=== PATIENT | male | born 1960 | race Caucasian/White ===

== ENCOUNTER 2019-06-06 14:17 | Emergency (ER) | payer BC ==
[~2019-06-06] VITALS: Ht 175.3 cm; Wt 79.4 kg
[~2019-06-06 14:17] MED LIST: Aspirin EC81 MG PO; Pepcid40 MG PO; Prinivil10 MG PO
[2019-06-06 15:16] LABS: BASOPHILS ABSOLUTE AUTO 0.06 K/mm3 (0.00-0.23); BASOPHILS PERCENT AUTO 1 % (0-2); EOSINOPHILS ABSOLUTE AUTO 0.04 K/mm3 (0.00-0.68); EOSINOPHILS PERCENT AUTO 0 % (0-6); Hematocrit 43.9 % (37.0-53.0); Hemoglobin 15.2 g/dL (13.5-17.5); IMMATURE GRAN ABSOLUTE AUTO 0.06 K/mm3 (0.00-0.10); IMMATURE GRAN PERCENT AUTO 1 % (0-1); LYMPHOCYTES ABSOLUTE AUTO 1.19 K/mm3 (0.84-5.20); LYMPHOCYTES PERCENT AUTO 13 % (21-46); MONOCYTES PERCENT AUTO 6 % (4-13); Mean Corpuscular HGB 29.5 pg (26.0-34.0); Mean Corpuscular HGB Conc 34.6 g/dL (31.5-36.5); Mean Corpuscular Volume 85 fL (80-100); Mean Platelet Volume 9.4 fL (9.1-12.4); NEUTROPHILS ABSOLUTE AUTO 7.09 K/mm3 (1.96-9.15); NEUTROPHILS PERCENT AUTO 79 % (41-73); Platelet Count 249 K/mm3 (150-400); RDW Coefficient Variation 11.9 % (11.7-14.2); RDW Standard Deviation 37.3 fL (35.1-46.3); Red Blood Cell Count 5.15 M/mm3 (4.30-5.90); White Blood Cell Count 8.94 K/mm3 (4.00-11.30)
[2019-06-06] MEDS ORDERED: Toprol Xl25 MG PO (16:13)
[2019-06-06] MEDS ORDERED: AZIT500 PO (16:13)
== END 2019-06-06 16:30 | disposition home or self-care (01) ==
LOC: ER 14:17
PROVIDERS: Emergency Medicine
DX: I10 Essential (primary) hypertension (principal); J20.9 Acute bronchitis, unspecified; J42 Unspecified chronic bronchitis; R04.2 Hemoptysis; F17.200 Nicotine dependence, unspecified, uncomplicated; Z79.899 Other long term (current) drug therapy; Z79.82 Long term (current) use of aspirin
CPT/HCPCS: 36415; 71046; 85025; 93005; 93010; 96374; 96376; 99284-25; J0360

== ENCOUNTER 2020-01-06 12:34 | Emergency (ER) | payer BC ==
[~2020-01-06] VITALS: Ht 175.3 cm; Wt 72.6 kg
[~2020-01-06 12:34] MED LIST changes: +AZIT500 PO; +Toprol Xl25 MG PO
[2020-01-06 13:31] LABS: BASOPHILS ABSOLUTE AUTO 0.06 K/mm3 (0.00-0.23); BASOPHILS PERCENT AUTO 1 % (0-2); EOSINOPHILS ABSOLUTE AUTO 0.05 K/mm3 (0.00-0.68); EOSINOPHILS PERCENT AUTO 0 % (0-6); Hematocrit 47.6 % (37.0-53.0); Hemoglobin 16.2 g/dL (13.5-17.5); IMMATURE GRAN ABSOLUTE AUTO 0.05 K/mm3 (0.00-0.10); IMMATURE GRAN PERCENT AUTO 0 % (0-1); LYMPHOCYTES ABSOLUTE AUTO 1.71 K/mm3 (0.84-5.20); LYMPHOCYTES PERCENT AUTO 15 % (21-46); MONOCYTES ABSOLUTE AUTO 0.74 K/mm3 (0.16-1.47); MONOCYTES PERCENT AUTO 7 % (4-13); Mean Corpuscular HGB 29.1 pg (26.0-34.0); Mean Corpuscular Volume 86 fL (80-100); Mean Platelet Volume 9.8 fL (9.1-12.4); NEUTROPHILS ABSOLUTE AUTO 8.78 K/mm3 (1.96-9.15); NEUTROPHILS PERCENT AUTO 77 % (41-73); Platelet Count 238 K/mm3 (150-400); RDW Standard Deviation 37.6 fL (35.1-46.3); Red Blood Cell Count 5.56 M/mm3 (4.30-5.90); White Blood Cell Count 11.39 K/mm3 (4.00-11.30)
[2020-01-06 13:50] LABS: Alanine Aminotransfer (ALT/SGP 49 U/L (12-78); Albumin, Blood 4.1 g/dL (3.4-5.0); Albumin/Globulin Ratio 1.1 (0.8-1.8); Alk Phos 129 U/L (50-136); Anion Gap 5 mmol/L (6-16); Aspartate Aminotrans (AST/SGOT 26 U/L (12-37); Bilirubin, Total 0.4 mg/dL (0.1-1.0); Blood Urea Nitrogen 17 mg/dL (8-24); Bun/Creatinine Ratio 16.2 (12.0-20.0); CO2, Blood 28 mmol/L (21-32); Calcium, Blood 9.5 mg/dL (8.5-10.1); Chloride, Blood 105 mmol/L (98-108); Creatinine, Blood 1.05 mg/dL (0.60-1.20); Globulin, Blood 3.7 g/dL (2.2-4.0); Glomerular Filtration Rate >60 (60-); Glucose, Blood 94 mg/dL (70-99); Potassium, Blood 4.2 mmol/L (3.5-5.5); Sodium, Blood 138 mmol/L (136-145); Total Protein, Blood 7.8 g/dL (6.4-8.2); Troponin I <0.015 ng/mL (0.000-0.040)
[2020-01-06] MEDS ORDERED: LISI10 PO (14:17)
== END 2020-01-06 14:29 | disposition home or self-care (01) ==
LOC: ER 12:34
PROVIDERS: Emergency Medicine
DX: I10 Essential (primary) hypertension (principal); F17.210 Nicotine dependence, cigarettes, uncomplicated; Z79.82 Long term (current) use of aspirin
CPT/HCPCS: 36415; 71045; 80053; 84484; 85025; 93005; 93010; 96374; 99285-25

== ENCOUNTER 2020-01-13 10:06 | Emergency (ER) | payer BC ==
[~2020-01-13] VITALS: Ht 175.3 cm; Wt 72.6 kg
[~2020-01-13 10:06] MED LIST changes: +LISI10 PO
[2020-01-13 11:16] LABS: BASOPHILS ABSOLUTE AUTO 0.06 K/mm3 (0.00-0.23); BASOPHILS PERCENT AUTO 1 % (0-2); EOSINOPHILS ABSOLUTE AUTO 0.04 K/mm3 (0.00-0.68); EOSINOPHILS PERCENT AUTO 0 % (0-6); Hematocrit 45.6 % (37.0-53.0); Hemoglobin 15.3 g/dL (13.5-17.5); IMMATURE GRAN ABSOLUTE AUTO 0.06 K/mm3 (0.00-0.10); IMMATURE GRAN PERCENT AUTO 1 % (0-1); LYMPHOCYTES ABSOLUTE AUTO 1.32 K/mm3 (0.84-5.20); LYMPHOCYTES PERCENT AUTO 11 % (21-46); MONOCYTES ABSOLUTE AUTO 0.72 K/mm3 (0.16-1.47); MONOCYTES PERCENT AUTO 6 % (4-13); Mean Corpuscular HGB 28.6 pg (26.0-34.0); Mean Corpuscular HGB Conc 33.6 g/dL (31.5-36.5); Mean Corpuscular Volume 85 fL (80-100); Mean Platelet Volume 9.6 fL (9.1-12.4); NEUTROPHILS ABSOLUTE AUTO 9.37 K/mm3 (1.96-9.15); NEUTROPHILS PERCENT AUTO 81 % (41-73); Platelet Count 263 K/mm3 (150-400); RDW Coefficient Variation 11.9 % (11.7-14.2); RDW Standard Deviation 37.4 fL (35.1-46.3); Red Blood Cell Count 5.35 M/mm3 (4.30-5.90); White Blood Cell Count 11.57 K/mm3 (4.00-11.30)
[2020-01-13 11:32] LABS: Alanine Aminotransfer (ALT/SGP 35 U/L (12-78); Albumin, Blood 4.2 g/dL (3.4-5.0); Albumin/Globulin Ratio 1.1 (0.8-1.8); Alk Phos 130 U/L (50-136); Anion Gap 5 mmol/L (6-16); Aspartate Aminotrans (AST/SGOT 19 U/L (12-37); Bilirubin, Total 0.3 mg/dL (0.1-1.0); Blood Urea Nitrogen 20 mg/dL (8-24); Bun/Creatinine Ratio 18.9 (12.0-20.0); CO2, Blood 26 mmol/L (21-32); Calcium, Blood 9.6 mg/dL (8.5-10.1); Chloride, Blood 103 mmol/L (98-108); Creatinine, Blood 1.06 mg/dL (0.60-1.20); Globulin, Blood 3.7 g/dL (2.2-4.0); Glomerular Filtration Rate >60 (60-); Glucose, Blood 90 mg/dL (70-99); Potassium, Blood 4.6 mmol/L (3.5-5.5); Sodium, Blood 134 mmol/L (136-145); Total Protein, Blood 7.9 g/dL (6.4-8.2)
== END 2020-01-13 17:29 | disposition home or self-care (01) ==
LOC: ER 10:06
PROVIDERS: Physician Assistant
DX: I10 Essential (primary) hypertension (principal); R07.89 Other chest pain; F17.210 Nicotine dependence, cigarettes, uncomplicated; Z79.899 Other long term (current) drug therapy; Z79.82 Long term (current) use of aspirin
CPT/HCPCS: 36415; 71046; 80053; 85025; 93005; 93010; 99284-25; J1815

== ENCOUNTER 2022-09-13 10:23 | Inpatient (IN) | payer OTHER ==
[~2022-09-13] VITALS: Ht 172.7 cm; Wt 62.3 kg
[~2022-09-13 10:23] MED LIST changes: +ROSU5; +SPIRIVA RESPIMAT4 G2; +TELM40
[2022-09-13 11:14] LABS: Hematocrit 36.7 % (37.0-53.0); Hemoglobin 12.5 g/dL (13.5-17.5); Mean Corpuscular HGB 26.7 pg (26.0-34.0); Mean Corpuscular HGB Conc 34.1 g/dL (31.5-36.5); Mean Corpuscular Volume 78 fL (80-100); Mean Platelet Volume 7.9 fL (9.1-12.4); Platelet Count 525 K/mm3 (150-400); RDW Coefficient Variation 13.5 % (11.7-14.2); RDW Standard Deviation 38.5 fL (35.1-46.3); Red Blood Cell Count 4.68 M/mm3 (4.30-5.90); White Blood Cell Count 26.33 K/mm3 (4.00-11.30)
[2022-09-13 11:33] LABS: Albumin/Globulin Ratio 0.4 (0.8-1.8); Bilirubin, Total 0.3 mg/dL (0.1-1.0); Bun/Creatinine Ratio 13.6 (12.0-20.0); Creatinine, Blood 0.66 mg/dL (0.60-1.20); Globulin, Blood 5.1 g/dL (2.2-4.0); Total Protein, Blood 7.2 g/dL (6.4-8.2)
[2022-09-13 11:43] LABS: Albumin, Blood 2.1 g/dL (3.4-5.0)
[2022-09-13 12:33] LABS: BASOPHILS PERCENT MAN 0 % (0-2); EOSINOPHILS PERCENT MAN 0 % (0-6); LYMPHOCYTES ABSOLUTE MAN 0.78 K/mm3 (0.84-5.20); LYMPHOCYTES PERCENT MAN 3 % (21-46); MONOCYTES ABSOLUTE MAN 1.05 K/mm3 (0.16-1.47); MONOCYTES PERCENT MAN 4 % (4-13); NEUTROPHILS ABSOLUTE MAN 24.48 K/mm3 (1.96-9.15); SEG NEUTROPHILS PERCENT MAN 93 % (41-73); TOTAL CELLS COUNTED 100
[2022-09-13 15:53] LABS: Percent Saturation 10.8 % (20.0-50.0)
[2022-09-13 17:10] VITALS: BP 151/95
--- NOTE | 2022-09-13 17:59 | NUR ---
SHIFT SUMMARY 1702 RECEIVED PT TO RM 342 VIA W/C FROM ER. PT IS A&O, INDEPENDENT AND ABLE TO TX SELF TO BED. PT UP TO BTHRM UPON ADMISSION; URINE OBTAINED AND SENT PER ORDERS. PT BACK TO BED INDEPENDENTLY. ADMISSION COMPLETE. NO C/O. DIET ORDERED; PT REPORTED THAT HE FEELS LIKE HE MIGHT ACTUALLY EAT SOMETHING. PT REPORTING RECENT 50LB WT LOSS. FRIENDS IN TO VISIT BRINGING PERSONAL ITEMS. DENIED FURTHER NEEDS. CALL LT IN REACH.
[2022-09-13 20:21] VITALS: BP 144/73
--- NOTE | 2022-09-14 04:50 | NUR ---
SHIFT SUMMARY NO ACUTE CHANGES NOTED DURING SHIFT. PT ALERT AND ORIENTED, CALLS APPROPRIATELY. PT REMAINS ON RA, INDEPENDENT IN ROOM. NO C/O PAIN NOTED. NS INFUSION COMPLETED. WILL CONTINUE TO MONITOR. CALL LIGHT WITHIN REACH.
[2022-09-14 04:59] VITALS: BP 146/90
[2022-09-14 05:57] LABS: BASOPHILS ABSOLUTE AUTO 0.04 K/mm3 (0.00-0.23); BASOPHILS PERCENT AUTO 0 % (0-2); EOSINOPHILS ABSOLUTE AUTO 0.01 K/mm3 (0.00-0.68); EOSINOPHILS PERCENT AUTO 0 % (0-6); Hematocrit 29.5 % (37.0-53.0); Hemoglobin 9.9 g/dL (13.5-17.5); IMMATURE GRAN ABSOLUTE AUTO 0.28 K/mm3 (0.00-0.10); IMMATURE GRAN PERCENT AUTO 2 % (0-1); LYMPHOCYTES ABSOLUTE AUTO 0.57 K/mm3 (0.84-5.20); LYMPHOCYTES PERCENT AUTO 3 % (21-46); MONOCYTES ABSOLUTE AUTO 0.65 K/mm3 (0.16-1.47); MONOCYTES PERCENT AUTO 3 % (4-13); Mean Corpuscular HGB 26.2 pg (26.0-34.0); Mean Corpuscular HGB Conc 33.6 g/dL (31.5-36.5); Mean Corpuscular Volume 78 fL (80-100); Mean Platelet Volume 8.3 fL (9.1-12.4); NEUTROPHILS ABSOLUTE AUTO 17.69 K/mm3 (1.96-9.15); NEUTROPHILS PERCENT AUTO 92 % (41-73); Platelet Count 413 K/mm3 (150-400); RDW Coefficient Variation 13.4 % (11.7-14.2); RDW Standard Deviation 38.5 fL (35.1-46.3); Red Blood Cell Count 3.78 M/mm3 (4.30-5.90); White Blood Cell Count 19.24 K/mm3 (4.00-11.30)
[2022-09-14 06:49] LABS: Albumin, Blood 1.7 g/dL (3.4-5.0); Albumin/Globulin Ratio 0.4 (0.8-1.8); Bilirubin, Total 0.3 mg/dL (0.1-1.0); Bun/Creatinine Ratio 20.6 (12.0-20.0); Calcium, Blood 8.3 mg/dL (8.5-10.1); Creatinine, Blood 0.53 mg/dL (0.60-1.20); Globulin, Blood 4.1 g/dL (2.2-4.0); Magnesium, Blood 1.8 mg/dL (1.6-2.4); Potassium, Blood 4.4 mmol/L (3.5-5.5); Thyroid Stimulating Hormone 1.18 uIU/mL (0.360-4.800); Total Protein, Blood 5.8 g/dL (6.4-8.2)
[2022-09-14 07:17] VITALS: BP 164/80
[2022-09-14 15:04] VITALS: BP 174/81
--- NOTE | 2022-09-14 15:57 | NUR ---
SHIFT SUMMARY PT AWAKE DURING SHIFT REPORT, THIS AM. NO C/O. PLEASANT AND CO-OP. UP INDEPENDENTLY IN RM AND WALKING HALLS. VISITORS IN TO SEE PT EARLY. DR TORRES LATER IN TO SEE PT AND DISCUSS PLAN OF CARE. PULMONOLOGY TO CONTACTED FOR THROACENTISIS OR BRONCHOSCOPY. DR WERNER LATER IN TO SEE PT AND DISCUSS PLAN OF CARE. PT TO HAVE BRONCHOSCOPY TOMORROW, POSSIBLY IN AFTERNOON; DR WERNER TO MAKE ARRANGEMENTS AND PLACE ORDERS NEEDED. PLAN IS FOR PT TO EAT BREAKFAST IN AM AND THEN BE NPO. IV ABX ORDERED AND GIVEN PER EMAR. PT THEN UP INDEPENDENTLY GOING OUT FOR WALK IN HALLS. NO C/O PAIN. PT HAS BEEN TOLERATING MEALS WELL SINCE BEING ABLE TO EAT. DENIED FURTHER NEEDS AT THIS TIME. CALL LT IN REACH.
[2022-09-14 20:10] VITALS: BP 145/81
[2022-09-15 04:43] VITALS: BP 174/90
[2022-09-15 05:10] LABS: Hematocrit 30.6 % (37.0-53.0); Hemoglobin 10.2 g/dL (13.5-17.5); Mean Corpuscular HGB Conc 33.3 g/dL (31.5-36.5); Mean Corpuscular Volume 78 fL (80-100); Platelet Count 460 K/mm3 (150-400); RDW Coefficient Variation 13.4 % (11.7-14.2); RDW Standard Deviation 38.5 fL (35.1-46.3); Red Blood Cell Count 3.93 M/mm3 (4.30-5.90)
[2022-09-15 05:24] LABS: International Normalized Ratio 1.16; Prothrombin Time Results 12.1 Sec (9.7-11.5)
--- NOTE | 2022-09-15 05:27 | NUR ---
SHIFT SUMMARY NO ACUTE CHANGES NOTED DURING SHIFT. PT ALERT AND ORIENTED, CALLS APPRORPIATELY. PLANS FOR BRONCOSCOPY TODAY, NPO AFTER BREAKFAST. PT REMAINS ON RA, INDEPENDENT IN ROOM. CONTINUE IV ABX. NO C/O PAIN NOTED. WILL CONTINUE TO MONITOR. CALL LIGHT WITHIN REACH.
[2022-09-15 05:30] LABS: Albumin, Blood 1.7 g/dL (3.4-5.0); Albumin/Globulin Ratio 0.5 (0.8-1.8); Bilirubin, Total 0.2 mg/dL (0.1-1.0); Bun/Creatinine Ratio 13.2 (12.0-20.0); Calcium, Blood 8.2 mg/dL (8.5-10.1); Creatinine, Blood 0.91 mg/dL (0.60-1.20); Globulin, Blood 3.7 g/dL (2.2-4.0); Magnesium, Blood 1.6 mg/dL (1.6-2.4); Potassium, Blood 3.9 mmol/L (3.5-5.5); Total Protein, Blood 5.4 g/dL (6.4-8.2)
[2022-09-15 07:58] VITALS: BP 146/84
[2022-09-15 15:56] VITALS: BP 169/94
--- NOTE | 2022-09-15 17:47 | NUR ---
NO ACUTE CHANGES. PT AOX4 AND COOPERATIVE OF CARE. PT DOES CONTINUE TO HAVE SOME COUGHING FITS THAT RESOLVE. INDEPENDENT IN ROOM. PT INSTRUCTED ON IGNITION HAZARDS WHEN O2 IS IN THE ROOM AND VERBALIZED UNDERSTANDING. CALL LIGHT WITHIN REACH ABLE TO MAKE NEEDS KNOWN.
[2022-09-15 20:02] VITALS: BP 150/82
[2022-09-16] VITALS (55 sets, daily range): BP systolic 121–180; BP diastolic 68–146
--- NOTE | 2022-09-16 03:13 | NUR ---
FIRE SAFETY PATIENT EDUCATED ON HOURLY ROUNDING FOR FIRE SAFETY AND RISK OF INJURY WHILE OXYGEN IN USE. PATIENT VERBALIZED UNDERSTANDING, DENIES HAVING ANY IGNITION SOURCES, DENIES SMOKING.
--- NOTE | 2022-09-16 05:49 | NUR ---
SHIFT SUMMARY PATIENT A/0X4, NO C/O PAIN NOR DISCOMFORT STATED THIS SHIFT. INTERMITTANT DRY COUGH, WHEEZING AT TIMES, DENIES SOB, NOR DIFFICULTY BREATHING. COMPLIANT WITH NPO STATUS SINCE MIDNIGHT. INDEPENDANT IN ROOM. NO ACUTE CHANGES OVERNIGHT. BED IN LOW POSITION, CALL LIGHT WITHIN REACH.
--- NOTE | 2022-09-16 12:56 | NUR ---
PT OUT OF ROOM FOR PROCEDURE AT THIS TIME.
--- NOTE | 2022-09-16 13:07 | NUR ---
Patient confirms NPO status and agrees with scheduled surgery. History, Chart, Medications and Allergies reviewed before start of procedure.Pre-Op teaching done. Pt verbalizes understanding. PT HERE FROM MED FLOOR FOR BRONCH LUNGS COARSE W/EXPIRATORY WHEEZE ON RIGHT SIDE, LEFT UPPER LOBE COARSE, LEFT LOWER LOBE VERY DIM
--- NOTE | 2022-09-16 13:37 | NUR ---
09/16/22 1336 Joao [place] HISTORY,CHART, MEDICATIONS AND ALLERGIES REVIEWED BEFORE START OF PROCEDURE. PATIENT CONFIRMS NPO STATUS AND AGREES WITH SCHEDULED PROCEDURE. 3-LEAD EKG REVIEWED WITH PHYSICIAN PRIOR TO START OF PROCEDURE. MONITOR INTACT WITH CONTINUOUS PULSE OXIMETRY, 3-LEAD EKG, CAPNOGRAPHY AND INTERMITTENT BP. SUPPLEMENTAL O2 TO BE TITRATED THROUGHOUT PROCEDURE TO MAINTAIN O2 SATURATION ABOVE 90%. PATIENT DETERMINED TO BE ASA APPROPRIATE FOR MODERATE SEDATION PRIOR TO START OF PROCEDURE BY
--- NOTE | 2022-09-16 15:41 | NUR ---
SHIFT SUMMARY PRIOR TO LEAVING FOR PROCEDURE PT WAS AA0X4, IND IN ROOM. NO PAIN AND HE DENIES SOB. CURRENTLY AWAITING PT TO COME BACK FROM PROCEDURE.
--- NOTE | 2022-09-16 16:40 | NUR ---
ARRIVAL PT ARRIVED TO UNIT FROM PACU AT 1630. PT ABLE TO STAND UP, AWAKE AND ORIENTED. MAKING NEEDS MET. PT STATES HE CAN WALK ON HIS OWN, BUT GAIT DOES NOT MATCH. BED ALARM IS ON, EDUCATED PT ON NEED TO CALL WITH ALL AMBULATION. PLACED ON 2L NASAL CANULA, SATS 88-89% ON ROOM AIR. 95% OR HIGHER ON 2L.
--- NOTE | 2022-09-16 16:42 | NUR ---
PATIENT REPOSITIONED, NEURO CHECKS DONE, PATIENT ABLE TO FOLLOW COMMANDS AFTER REPOITIOING. AWAKE FOR A FEW MINUTES BEFORE ABLE TO RESPOND VERBALLY. CALLED MEDICAL FLOOR RN TO DISCUSS. PATIENT TRANSFERED BACK TO MEDICAL
--- NOTE | 2022-09-17 03:21 | NUR ---
SHIFT SUMMARY NOC PT A/O X 4. PLEASANT AND COOPERATIVE WITH CARE. POST OP FOR BIOPSY FROM LEFT LUNG TO R/O CANCER. PT HAS COUGHED UP BLOOD A FEW TIMES DURING SHIFT, BUT IT IS EXPECTED. POST OP VS REMAIN STABLE. PT HAS SLEPT MAJORITY OF SHIFT, PT REPORTS FEELING STRESSED FROM PROCEDURE YESTERDAY AND LOOKING FORWARD TO GETTING SOME REST. BEDTIME RX GIVEN. PT IS CURRENTLY RESTING WITH BED IN LOWEST POSITION, AND CALL LIGHT WITHIN REACH.
[2022-09-17 05:34] VITALS: BP 142/95
--- NOTE | 2022-09-17 05:56 | NUR ---
PT EDUCATED ON [facility] IGNITION/EXPLOSIVES NON SMOKING SAFETY POLICY.
[2022-09-17 07:32] VITALS: BP 137/79
[2022-09-17 08:12] LABS: BASOPHILS ABSOLUTE AUTO 0.05 K/mm3 (0.00-0.23); BASOPHILS PERCENT AUTO 0 % (0-2); EOSINOPHILS PERCENT AUTO 0 % (0-6); Hemoglobin 10.3 g/dL (13.5-17.5); IMMATURE GRAN ABSOLUTE AUTO 0.32 K/mm3 (0.00-0.10); IMMATURE GRAN PERCENT AUTO 2 % (0-1); LYMPHOCYTES PERCENT AUTO 4 % (21-46); MONOCYTES PERCENT AUTO 6 % (4-13); Mean Corpuscular HGB 26.2 pg (26.0-34.0); Mean Corpuscular HGB Conc 33.2 g/dL (31.5-36.5); Mean Corpuscular Volume 79 fL (80-100); Mean Platelet Volume 8.1 fL (9.1-12.4); NEUTROPHILS ABSOLUTE AUTO 11.77 K/mm3 (1.96-9.15); NEUTROPHILS PERCENT AUTO 87 % (41-73); Platelet Count 442 K/mm3 (150-400); RDW Coefficient Variation 13.5 % (11.7-14.2); Red Blood Cell Count 3.93 M/mm3 (4.30-5.90); White Blood Cell Count 13.54 K/mm3 (4.00-11.30)
[2022-09-17 08:26] LABS: Bun/Creatinine Ratio 16.9 (12.0-20.0); Calcium, Blood 8.2 mg/dL (8.5-10.1); Creatinine, Blood 0.65 mg/dL (0.60-1.20); Potassium, Blood 3.8 mmol/L (3.5-5.5)
--- NOTE | 2022-09-17 14:50 | NUR ---
Pt. is awake and welcomes my visit. Pt. is pleasant, but a little unsettled waiting for the results of his biopsy. Pt. verbalized that he was dissapointed that Dr. Leonard was no longer on his case, because Pt. appreciated his care and approach. Facilitated a life review and established rapport. Pt. verbalized things that meant the most to him during this medical ordeal, and clarified that it was the friends who are reaching out to care for him. Prayed with Pt. and normalized the Pt. expereince. Pt. verbalized gratitude for the spiritual care visit.
[2022-09-17 16:07] VITALS: BP 144/79
--- NOTE | 2022-09-17 17:28 | NUR ---
SHIFT SUMMARY PATIENT ALERT AND INTERACTIVE. CONTINUES TO COUGH UP PINK FOAMY SPUTUM. LUNGS WHEEZY AND COARSE. PATIENT CONTINUES TO BE ON OXYGEN. WAITING FOR PATHOLOGY REPORT. PATIENT INDEPENDENT IN THE ROOM. PATIENT GIVEN FLUTTER AND IS AND STARTED ON TESALON PEARLS FOR COUGH.
[2022-09-17 19:05] VITALS: BP 177/96
[2022-09-17 20:52] VITALS: BP 174/86
--- NOTE | 2022-09-17 21:15 | NUR ---
NOTIFIED JENSEN GRIMES OF PTS B/P OF 174/ THIS EVENING DESPITE PM B/P MED ADMINISTRATION. NEW ORDER FOR 25MG OF PO HYDRALAZINE Q8HR FOR A SBP >180.
[2022-09-18 04:16] VITALS: BP 176/96
[2022-09-18 05:49] LABS: BASOPHILS ABSOLUTE AUTO 0.07 K/mm3 (0.00-0.23); BASOPHILS PERCENT AUTO 1 % (0-2); EOSINOPHILS ABSOLUTE AUTO 0.03 K/mm3 (0.00-0.68); EOSINOPHILS PERCENT AUTO 0 % (0-6); Hematocrit 29.3 % (37.0-53.0); Hemoglobin 9.9 g/dL (13.5-17.5); IMMATURE GRAN ABSOLUTE AUTO 0.38 K/mm3 (0.00-0.10); IMMATURE GRAN PERCENT AUTO 3 % (0-1); LYMPHOCYTES ABSOLUTE AUTO 0.76 K/mm3 (0.84-5.20); LYMPHOCYTES PERCENT AUTO 6 % (21-46); MONOCYTES ABSOLUTE AUTO 0.97 K/mm3 (0.16-1.47); MONOCYTES PERCENT AUTO 7 % (4-13); Mean Corpuscular HGB 26.3 pg (26.0-34.0); Mean Corpuscular HGB Conc 33.8 g/dL (31.5-36.5); Mean Corpuscular Volume 78 fL (80-100); Mean Platelet Volume 8.4 fL (9.1-12.4); NEUTROPHILS ABSOLUTE AUTO 10.88 K/mm3 (1.96-9.15); NEUTROPHILS PERCENT AUTO 83 % (41-73); Platelet Count 435 K/mm3 (150-400); RDW Coefficient Variation 13.3 % (11.7-14.2); RDW Standard Deviation 37.8 fL (35.1-46.3); Red Blood Cell Count 3.76 M/mm3 (4.30-5.90); White Blood Cell Count 13.09 K/mm3 (4.00-11.30)
--- NOTE | 2022-09-18 06:12 | NUR ---
SHIFT SUMMARY; NO ACUTE CHANGES OVERNIGHT. THE PT IS AXO X4 AND INDEPENDENT IN THE ROOM. THE PT IS ON 2L NC WITH O2 SATS >92%. THE PT HAS A SEMI-PRODUCTIVE COUGH WITH SMALL AMOUNTS OF PINK SPUTUM THAT HE IS COUGHING UP. THE PT DENIES ANY CHEST PAIN/PRESSURE, SOB, PAIN OR N/V THIS SHIFT. CURRENTLY THE PT IS SLEEPING IN BED WITH THE BED IN THE LOWEST POSITION AND THE CALL LIGHT AT BEDSIDE.
[2022-09-18 06:23] LABS: Bun/Creatinine Ratio 19.6 (12.0-20.0); Creatinine, Blood 0.66 mg/dL (0.60-1.20); Potassium, Blood 4.6 mmol/L (3.5-5.5)
--- NOTE | 2022-09-18 06:31 | NUR ---
FIRE SAFETY MAINTAINED T/O SHIFT.
[2022-09-18 07:42] VITALS: BP 153/95
--- NOTE | 2022-09-18 18:09 | NUR ---
NO ACUTE CHANGES AT THIS TIME. PT AOX4 AND COOPERATIVE OF CARE. PT INDEPENDENT IN ROOM. PT CAN MAKE NEEDS KNOWN AND NO DISTRESS NOTED AT THIS TIME. CALL LIGHT WITHIN REACH. PT CONTINUES TO GET HOURLY REMINDERS OF IGNITION RISK FACTORS AND THE HAZARDS OF USE IN ROOMS WITH 02. PT VERBALIZES UNDERSTANDING.WILL CONTINUE TO MONITOR.
[2022-09-18 20:33] VITALS: BP 153/82
[2022-09-19 01:56] VITALS: BP 141/71
[2022-09-19 06:04] LABS: Hematocrit 30.4 % (37.0-53.0); Hemoglobin 10.3 g/dL (13.5-17.5); Mean Corpuscular HGB Conc 33.9 g/dL (31.5-36.5); Mean Corpuscular Volume 77 fL (80-100); Mean Platelet Volume 7.9 fL (9.1-12.4); Platelet Count 421 K/mm3 (150-400); RDW Coefficient Variation 12.9 % (11.7-14.2); RDW Standard Deviation 36.4 fL (35.1-46.3); Red Blood Cell Count 3.96 M/mm3 (4.30-5.90); White Blood Cell Count 12.01 K/mm3 (4.00-11.30)
--- NOTE | 2022-09-19 06:17 | NUR ---
SHIFT SUMMARY NO EVENTS OVERNIGHT. Q1H FIRE SAFETY CHECKS PERFORMED, NO SOURCES OF IGNITION FOUND.
[2022-09-19 06:48] LABS: Bun/Creatinine Ratio 18.5 (12.0-20.0); Calcium, Blood 8.2 mg/dL (8.5-10.1); Creatinine, Blood 0.59 mg/dL (0.60-1.20); Potassium, Blood 4.3 mmol/L (3.5-5.5)
--- NOTE | 2022-09-19 07:00 | NUR ---
FIRE SAFETY QUESTIONS, STATES NO IGNITION SOURCES
[2022-09-19 07:22] LABS: BASOPHILS PERCENT MAN 0 % (0-2); EOSINOPHILS PERCENT MAN 0 % (0-6); LYMPHOCYTES ABSOLUTE MAN 0.96 K/mm3 (0.84-5.20); LYMPHOCYTES PERCENT MAN 8 % (21-46); METAMYELOCYTE ABSOLUTE MAN 0.24 K/mm3 (0.00-0.00); METAMYELOCYTE PERCENT MAN 2 % (0-0); MONOCYTES ABSOLUTE MAN 0.24 K/mm3 (0.16-1.47); MONOCYTES PERCENT MAN 2 % (4-13); MYELOCYTE ABSOLUTE MAN 0.36 K/mm3 (0.00-0.00); MYELOCYTE PERCENT MAN 3 % (0-0); SEG NEUTROPHILS PERCENT MAN 85 % (41-73); TOTAL CELLS COUNTED 100
[2022-09-19 07:44] VITALS: BP 149/89
--- NOTE | 2022-09-19 13:41 | NUR ---
PT PRE MEDICATED WITH 8 MG IV ZOFRAN AND 12 MG IV DECADRON. IV TO RIGHT UPPER ARM IS PATENT, GOOD BLOOD RETURN AND FLUSHES WELL
--- NOTE | 2022-09-19 14:35 | NUR ---
IV CHECKED, GOOD BLOOD RETURN AND FLUSHES EASILY, NO SWELLING OR REDNESS NOTED AT IV SITE, PT DENIES PAIN OR DISCOMFORT. VESPID VERIFIED WITH [place] AND INFUSION STARTED. PT CONTINUES TO DENY PAIN/DISCOMFORT. WILL MONITOR DURING INFUSION.
--- NOTE | 2022-09-19 15:52 | NUR ---
PT PLEASANT COOP TODAY. RECEIVING FIRST CHEMO DOSE NOW. PREMEDICATED ZOFRAN AND STEROIDS. PT DENIES PAIN TODAY. FRIENDS IN TO VISIT TODAY. DR PORTER NOTES [facility] DAYS THEN EXPECTS OUTPATIENT CARE [facility]. CALLED DR PORTER RE IV PLACEMNT NECESSARY. TO ADVIST DR FENTON. NO OTHER CONCERNS NOTED TODAY. BED IN LOW POSITION, CALLLITE IN REACH, CALLS APPROP
--- NOTE | 2022-09-19 16:00 | NUR ---
VESPID INFUSION COMPLETE. PT HAS TOLERATED WELL, NO PAIN, SWELLING OR REDNESS AT IV SITE. TUBING REMOVED AND DISPOSED OF PER PROTOCOL. SIGNAGE PLACED AT DOOR
[2022-09-19 19:26] VITALS: BP 171/92
--- NOTE | 2022-09-19 19:57 | NUR ---
DR FENTON SPOKE TO ME RE MEDIPORT PLACEMENT. CALLED DR PORTER, HE AGREES IS GOOD IDEA, DR FENTON OKAYED SURG CONSULT TO DR BOO FOR PLACEMENT, I CALLED CONSULT
--- NOTE | 2022-09-20 03:44 | NUR ---
SHIFT SUMMARY NOC PT A/O X 4. PLEASANT AND COOPERATIVE WITH CARE. PT HAD C/O OF HEART BURN AND TUMS ORDERED, OTHERWISE NO ACUTE CHANGES TO REPORT. PT HAD FIRST ROUND OF CHEMOTHERAPY FOR NEWLY DX LUNG CANCER YESTERDAY AND REPORTS NO N/V. PT HAS CONSULT CALLED IN FOR POSSIBLE MEDIPORT PLACEMENT WITH DR LABOY. PT WILL REMAIN IN HOSPTIAL FOR 3 MORE DAYS BEFORE GOING TO [facility] FOR FOLLOW UP WITH ONCOLOGIST DR PORTER. PT SODIUM 116, SO PT ON 1L FREE WATER FLUID RESTRICTION TO CORRECT IMBALANCE, AWAITING AM LABS. PT EDUCATED ON [facility] IGNITION/EXPLOSIVES NON SMOKING SAFETY POLICY. PT IS CURRENTLY RESTING WITH BED IN LOWEST POSITION, AND CALL LIGHT WITHIN REACH.
[2022-09-20 04:58] VITALS: BP 174/89
[2022-09-20 06:19] LABS: Hematocrit 33.2 % (37.0-53.0); Hemoglobin 11.8 g/dL (13.5-17.5); Mean Corpuscular HGB 26.4 pg (26.0-34.0); Mean Corpuscular HGB Conc 35.5 g/dL (31.5-36.5); Mean Corpuscular Volume 74 fL (80-100); Mean Platelet Volume 8.3 fL (9.1-12.4); Platelet Count 528 K/mm3 (150-400); RDW Standard Deviation 34.7 fL (35.1-46.3); Red Blood Cell Count 4.47 M/mm3 (4.30-5.90); White Blood Cell Count 12.63 K/mm3 (4.00-11.30)
[2022-09-20 06:53] LABS: BAND PERCENT MAN 4 % (0-8); BASOPHILS PERCENT MAN 0 % (0-2); EOSINOPHILS PERCENT MAN 0 % (0-6); LYMPHOCYTES ABSOLUTE MAN 0.37 K/mm3 (0.84-5.20); LYMPHOCYTES PERCENT MAN 3 % (21-46); METAMYELOCYTE ABSOLUTE MAN 0.25 K/mm3 (0.00-0.00); METAMYELOCYTE PERCENT MAN 2 % (0-0); MONOCYTES ABSOLUTE MAN 0.25 K/mm3 (0.16-1.47); MONOCYTES PERCENT MAN 2 % (4-13); MYELOCYTE PERCENT MAN 4 % (0-0); NEUTROPHILS ABSOLUTE MAN 11.24 K/mm3 (1.96-9.15); SEG NEUTROPHILS PERCENT MAN 85 % (41-73); TOTAL CELLS COUNTED 100
[2022-09-20 08:39] VITALS: BP 154/87
[2022-09-20 10:40] LABS: Albumin, Blood 2.2 g/dL (3.4-5.0); Albumin/Globulin Ratio 0.5 (0.8-1.8); Bilirubin, Total 0.3 mg/dL (0.1-1.0); Calcium, Blood 8.9 mg/dL (8.5-10.1); Creatinine, Blood 0.6 mg/dL (0.60-1.20); Globulin, Blood 4.2 g/dL (2.2-4.0); Potassium, Blood 4.4 mmol/L (3.5-5.5); Total Protein, Blood 6.4 g/dL (6.4-8.2)
[2022-09-20 14:11] LABS: Bun/Creatinine Ratio 22.9 (12.0-20.0); Calcium, Blood 8.6 mg/dL (8.5-10.1); Creatinine, Blood 0.7 mg/dL (0.60-1.20); Potassium, Blood 4.4 mmol/L (3.5-5.5)
--- NOTE | 2022-09-20 17:29 | NUR ---
SHIFT SUMMARY: Pt remains A&O this shift. VSS, denies pain. OOB with SBA when IV infusing. Resp even nonlabored on RA. Nausea more managed with current regime. Hiccups subsided. Powerglide placed left arm for chemo that was given today by web services architect without complication. Dr. Peguero aware and orders received for Na 111. No further needs id or verbalized at this time. Will continue to monitor this shift.
[2022-09-20 17:34] VITALS: BP 144/81
[2022-09-20 19:12] LABS: Bun/Creatinine Ratio 27.6 (12.0-20.0); Calcium, Blood 8.4 mg/dL (8.5-10.1); Creatinine, Blood 0.58 mg/dL (0.60-1.20); Potassium, Blood 4.5 mmol/L (3.5-5.5)
[2022-09-20 19:25] VITALS: BP 153/102
[2022-09-20 22:54] LABS: Bun/Creatinine Ratio 24.6 (12.0-20.0); Calcium, Blood 8.1 mg/dL (8.5-10.1); Creatinine, Blood 0.65 mg/dL (0.60-1.20); Potassium, Blood 4.3 mmol/L (3.5-5.5)
[2022-09-21 02:47] VITALS: BP 158/84
[2022-09-21 03:09] LABS: Calcium, Blood 7.9 mg/dL (8.5-10.1); Creatinine, Blood 0.61 mg/dL (0.60-1.20); Potassium, Blood 4.3 mmol/L (3.5-5.5)
--- NOTE | 2022-09-21 03:25 | NUR ---
SHIFT SUMMARY NOC PT A/O X 4. PLEASANT AND COOPERATIVE WITH CARE. PT COMPLETED SECOND ROUND OF CHEMOTHERAPY YESTERDAY FOR NEW DX OF LUNG CANCER. PT REPORTS MILD NAUSEA AND DID NOT WANT ANY RX FOR IT. PT HAS PG AROLDO PLACED YESTERDAY AFTER SURGICAL CONSULT DECIDED THAT PLACEMENT OF MEDIPORT CONTAINED TO MUCH RISK FOR PT SAFETY DUE TO POSSIBLE ADVERSE REACTION TO ANESTHESIA THAT PT HAD AFTER EGD BIOPSY PERFORMED THIS PAST THURSDAY. PT SCHEDULED THIRD CHEMO ROUND TODAY WITH FOLLOW UP WITH DR PORTER THURSDAY AT [facility]. PT SODIUM 115 CURRENTLY WITH NS INFUSION RATE INCREASED TO 100 ML/HR THEN 125 ML/HR @ 0300 PER MD INSTRUCTIONS TO INCREASE SODIUM VALUE. PT RECEIVING ABX FOR PNA. PT IS ALSO RECEIVING PROTONIX FOR SEVERE HEARTBURN. PT EDUCATED ON [facility] FIRE SAFETY IGNITION/EXPLOSIVE NON SMOKING POLICY. PT CURRENTLY RESTING WITH BED IN LOWEST POSITION, AND CALL LIGHT WITHIN REACH.
[2022-09-21 06:21] LABS: BASOPHILS ABSOLUTE AUTO 0.02 K/mm3 (0.00-0.23); BASOPHILS PERCENT AUTO 0 % (0-2); EOSINOPHILS ABSOLUTE AUTO 0.01 K/mm3 (0.00-0.68); EOSINOPHILS PERCENT AUTO 0 % (0-6); Hematocrit 30.1 % (37.0-53.0); Hemoglobin 10.6 g/dL (13.5-17.5); IMMATURE GRAN ABSOLUTE AUTO 0.47 K/mm3 (0.00-0.10); IMMATURE GRAN PERCENT AUTO 3 % (0-1); LYMPHOCYTES ABSOLUTE AUTO 0.52 K/mm3 (0.84-5.20); LYMPHOCYTES PERCENT AUTO 4 % (21-46); MONOCYTES PERCENT AUTO 4 % (4-13); Mean Corpuscular HGB 26.6 pg (26.0-34.0); Mean Corpuscular HGB Conc 35.2 g/dL (31.5-36.5); Mean Corpuscular Volume 75 fL (80-100); NEUTROPHILS ABSOLUTE AUTO 12.88 K/mm3 (1.96-9.15); NEUTROPHILS PERCENT AUTO 89 % (41-73); Platelet Count 521 K/mm3 (150-400); RDW Standard Deviation 35.4 fL (35.1-46.3); Red Blood Cell Count 3.99 M/mm3 (4.30-5.90)
[2022-09-21 07:00] LABS: Bun/Creatinine Ratio 23.9 (12.0-20.0); Calcium, Blood 8.4 mg/dL (8.5-10.1); Creatinine, Blood 0.59 mg/dL (0.60-1.20); Potassium, Blood 4.3 mmol/L (3.5-5.5)
[2022-09-21 08:21] VITALS: BP 148/91
[2022-09-21 10:56] LABS: Bun/Creatinine Ratio 22.1 (12.0-20.0); Calcium, Blood 8.5 mg/dL (8.5-10.1); Creatinine, Blood 0.59 mg/dL (0.60-1.20); Potassium, Blood 4.2 mmol/L (3.5-5.5)
[2022-09-21 15:29] VITALS: BP 163/91
--- NOTE | 2022-09-21 17:45 | NUR ---
SHIFT SUMMARY: Pt remains A&Ox3 this shift. VSS. Denies pain. Up ad ulises. Nausea managed with current regime. Resp even nonlabored. Exp wheeze noted. Pt declined breathing tx. 1000ml fluid restriction in place. Last Na level 118 from 111. Remains asymptomatic. Chemo tx given today by Shonda Kendall. No c/o. Will continue to monitor this shift.
[2022-09-21 19:41] VITALS: BP 152/87
--- NOTE | 2022-09-22 03:11 | NUR ---
SHIFT SUMMARY NOC PT A/O X 4. PLEASANT AND COOPERATIVE WITH CARE. NO ACUTE CHANGES TO REPORT. PT REQUESTED MELATONIN FOR SLEEP INSTEAD OF PRN TEMAZEPAM DUE TO FEELING GROGGY AFTWE AWAKING. PT FINISHED THIRD ROUND OF CHEMO YESTERDAY. SODIUM 118 WITH AM LABS FOR TODAY STILL WAITING TO BE DRAWN. PT HAS SIADH AND IS ASYMPTOMATIC. PT HAS PG IN [facility]. PT IS SCHEDULED FOR DISCHARGE HOME TODAY. PT WILL FOLLOW UP WITH [facility]ENTER ONCOLOGIST DR PORTER SOMETIME THIS WEEK. PT STATES THAT HE WILL BE STAYING AT A FRIENDS HOUSE WHILE HIS HOUSE IS BEING CLEANED AND READY FOR HIM TO MOVE BACK INTO. PT EDUCATED ON [facility] FIRE SAFETY IGNITION/EXPLOSIVE NON SMOKING POLICY. PT IS CURRENTLY RESTING WITH BED IN LOWEST POSITION, AND CALL LIGHT WITHIN REACH.
[2022-09-22 04:32] VITALS: BP 154/90
[2022-09-22 05:56] LABS: Bun/Creatinine Ratio 29.9 (12.0-20.0); Calcium, Blood 8.5 mg/dL (8.5-10.1); Creatinine, Blood 0.5 mg/dL (0.60-1.20)
[2022-09-22 07:27] VITALS: BP 158/83
[2022-09-22] MEDS ORDERED: AMLO5 PO (10:44)
[2022-09-22] MEDS ORDERED: BENZ100A PO (10:44)
[2022-09-22] MEDS ORDERED: ACET325 PO (10:44)
[2022-09-22] MEDS ORDERED: Calcium Carbon500 MG PO (10:48)
[2022-09-22] MEDS ORDERED: LOSA25 PO (10:49)
[2022-09-22] MEDS ORDERED: GUAI600T33 PO (10:49)
[2022-09-22] MEDS ORDERED: MIRALAX17 GM PO (10:50)
[2022-09-22] MEDS ORDERED: MELATONIN5 M7 PO (10:50)
[2022-09-22] MEDS ORDERED: METO25ER PO (10:50)
[2022-09-22] MEDS ORDERED: ONDA4ODT MM (10:51)
[2022-09-22] MEDS ORDERED: PANT40 PO (10:51)
[2022-09-22] MEDS ORDERED: TIOT18 INH (10:52)
[2022-09-22] MEDS ORDERED: ALBU90OI INH (10:52)
--- NOTE | 2022-09-22 11:58 | NUR ---
DISCHARGE PT DISCHARGED AFTER EDUCATION OF NEW MEDS, FOLLOW UP APPOINTMENTS, AND OTHER DC INSTRUCTIONS. PT AND HIS FRIEND, KIMMY, VERBALIZED UNDERSTANDING OF THIS EDUCATION. NO IGNITION SOURCE FOUND IN ROOM PRIOR TO DC. PERIPHERAL IV REMOVED & INTACT. PG LEFT IN PLACE FOR ONOCOLOGY PER DR. OLIVA. NO OTHER ACUTE CHANGES IN ASSESSMENT PRIOR TO DC. PT WHEELED OUT BY AIDE & DRIVEN HOME BY FRIEND.
== END 2022-09-22 11:56 | disposition home health service (06) | DRG 166 ==
LOC: ER 10:23 → MEDS 15:07 → ENPENDDIS 09-22 10:11 → MEDS 09-22 11:56
PROVIDERS: Internal Medicine; Internal Medicine Critical Care Medicine; Physician Assistant; ADMIT Internal Medicine
PROC: 3E03329 Introduction of Other Anti-infective into Peripheral Vein, Percutaneous Approach (ICD-10-PCS; principal; 2022-09-13)
PROC: 0BBL8ZX Excision of Left Lung, Via Natural or Artificial Opening Endoscopic, Diagnostic (ICD-10-PCS; 2022-09-16 11:00)
PROC: 3E03305 Introduction of Other Antineoplastic into Peripheral Vein, Percutaneous Approach (ICD-10-PCS; 2022-09-18)
PROC: 05HY33Z Insertion of Infusion Device into Upper Vein, Percutaneous Approach (ICD-10-PCS; 2022-09-18)
DX: C34.92 Malignant neoplasm of unspecified part of left bronchus or lung (principal); A41.9 Sepsis, unspecified organism; E43 Unspecified severe protein-calorie malnutrition; J18.9 Pneumonia, unspecified organism; E22.2 Syndrome of inappropriate secretion of antidiuretic hormone; J44.1 Chronic obstructive pulmonary disease with (acute) exacerbation; J44.0 Chronic obstructive pulmonary disease with (acute) lower respiratory infection; J91.0 Malignant pleural effusion; E78.5 Hyperlipidemia, unspecified; I10 Essential (primary) hypertension; K21.9 Gastro-esophageal reflux disease without esophagitis; D63.8 Anemia in other chronic diseases classified elsewhere; I45.6 Pre-excitation syndrome; Z98.49 Cataract extraction status, unspecified eye; Z79.82 Long term (current) use of aspirin; Z79.899 Other long term (current) drug therapy; Z68.20 Body mass index [BMI] 20.0-20.9, adult; Z87.891 Personal history of nicotine dependence; Z99.81 Dependence on supplemental oxygen
CPT/HCPCS: 36415; 70553; 71046; 71260; 74177; 80048; 80053; 82607; 82728; 82746; 83540; 83550; 83605; 83690; 83735; 83880; 83930; 83935; 84145; 84300; 84443; 84484; 85025; 85027; 85610; 85651; 86140; 87040; 87449; 88173; 88305; 88341; 88342; 93005; 93010; 94640; 94644; 94664; 94760; 94762; 96361; 96365-59; 96375; 97110; 97162; 97530; 99285-25; A9270; A9579; C9113; J0171; J0456; J0696; J1100; J1650; J1940; J2001; J2060; J2250; J2405; J2765; J3010; J7030; J7050; J7060; J7120; J7512; J9181; Q9967

== ENCOUNTER → 2023-03-10 | Outpatient (CLI) | payer OTHER ==
[~2023-03-10] MED LIST changes: +ACET325 PO; +ALBU90OI INH; +AMLO5 PO; +BENZ100A PO; +Calcium Carbon500 MG PO; +GUAI600T33 PO; +LOSA25 PO; +MELATONIN5 M7 PO; +METO25ER PO; +MIRALAX17 GM PO; +ONDA4ODT MM; +PANT40 PO; +TIOT18 INH
[2023-03-10 10:28] LABS: BASOPHILS ABSOLUTE AUTO 0.05 K/mm3 (0.00-0.23); BASOPHILS PERCENT AUTO 1 % (0-2); EOSINOPHILS ABSOLUTE AUTO 0.13 K/mm3 (0.00-0.68); EOSINOPHILS PERCENT AUTO 2 % (0-6); Hematocrit 36.2 % (37.0-53.0); IMMATURE GRAN ABSOLUTE AUTO 0.03 K/mm3 (0.00-0.10); IMMATURE GRAN PERCENT AUTO 1 % (0-1); LYMPHOCYTES ABSOLUTE AUTO 0.73 K/mm3 (0.84-5.20); LYMPHOCYTES PERCENT AUTO 13 % (21-46); MONOCYTES ABSOLUTE AUTO 0.54 K/mm3 (0.16-1.47); MONOCYTES PERCENT AUTO 10 % (4-13); Mean Corpuscular HGB 27.6 pg (26.0-34.0); Mean Corpuscular HGB Conc 33.1 g/dL (31.5-36.5); Mean Corpuscular Volume 83 fL (80-100); Mean Platelet Volume 9.1 fL (9.1-12.4); NEUTROPHILS ABSOLUTE AUTO 3.97 K/mm3 (1.96-9.15); NEUTROPHILS PERCENT AUTO 73 % (41-73); Platelet Count 189 K/mm3 (150-400); RDW Standard Deviation 42.6 fL (35.1-46.3); Red Blood Cell Count 4.34 M/mm3 (4.30-5.90); White Blood Cell Count 5.45 K/mm3 (4.00-11.30)
[2023-03-11 08:11] LABS: A/G RATIO 1.3 (1.2-2.2); ALKALINE PHOSPHATASE, S 149 IU/L (44-121); ALT (SGPT) 13 IU/L (0-44); AST (SGOT) 19 IU/L (0-40); BILIRUBIN, TOTAL <0.2 mg/dL (0.0-1.2); BUN 23 mg/dL (8-27); BUN/CREATININE RATIO 23 (10-24); CALCIUM, SERUM 9.5 mg/dL (8.6-10.2); CARBON DIOXIDE, TOTAL 21 mmol/L (20-29); CHLORIDE, SERUM 96 mmol/L (96-106); CREATININE, SERUM 0.99 mg/dL (0.76-1.27); GLOBULIN, TOTAL 3.3 g/dL (1.5-4.5); GLUCOSE, SERUM 87 mg/dL (70-99); POTASSIUM, SERUM 4.6 mmol/L (3.5-5.2); PROTEIN, TOTAL, SERUM 7.6 g/dL (6.0-8.5); SODIUM, SERUM 133 mmol/L (134-144)
== END ==
LOC: LAB SHORT 09:40 → LAB 09:40
PROVIDERS: Internal Medicine Hematology & Oncology
DX: C34.02 Malignant neoplasm of left main bronchus (principal)
CPT/HCPCS: 80053; 85025

== ENCOUNTER 2023-08-20 06:38 | Day surgery (SDC) | payer MEDICARE, OTHER ==
[~2023-08-20] VITALS: Ht 175.3 cm; Wt 77.0 kg
[2023-08-20] VITALS (15 sets, daily range): BP systolic 121–167; BP diastolic 78–100
[~2023-08-20 06:38] MED LIST changes: +Aspir 8181 MG PO; +Crestor40 MG PO; +INCRUSE ELLIPTA
[2023-08-20] MEDS ORDERED: Heparin Sodium 1000 Units/ML 10ML MDV ONE ×2 (07:46→08:02)
[2023-08-20] MEDS ORDERED: NS 250 ML IV ONE ×2 (07:46→08:01)
[2023-08-20] MEDS ORDERED: NS 1,000 ML IV ONE ×2 (07:46→08:22)
[2023-08-20] MEDS ORDERED: Midazolam HCl 1MG / ML 2ML Vial ONE ×3 (08:21→09:35)
[2023-08-20] MEDS ORDERED: FentaNYL Citrate 50 MCG/ML 2 ML Injection ONE ×4 (08:22→10:16)
--- NOTE | 2023-08-20 10:50 | NUR ---
patient arrived from cathode maker, responds appropriately. right groin softa nd nontender, dressing D&I, no hematoma. left groin with catheter in place.
--- NOTE | 2023-08-20 11:13 | NUR ---
Jessica floor scrubber here tyo remove left groin sheath, held manual pressure. site stable, slight hematoma after holding pressure, dressing D&I
--- NOTE | 2023-08-20 12:00 | NUR ---
Dr Leung here to speak to patient about procedure and consent for next procedure
[2023-08-20] MEDS ORDERED: CLOP75 PO (12:30)
--- NOTE | 2023-08-20 12:32 | NUR ---
PATIENT HOB UP LEFT AND RIGHT GROIN SITES UNCHANGED
--- NOTE | 2023-08-20 13:25 | NUR ---
patient up to rest room
--- NOTE | 2023-08-20 14:40 | NUR ---
PATIENT VERBALIZED UNDERSTANDING OF DISCHARGE INSTRUCTIONS AND PRECAUTIONS, NO FURTHER QUESTIONS. RIGHT GROIN SITE SOFT AND NONTENDER, NO HEMATOMA,NO BLEEDING. LEFT GROIN SITE SOFT AND NONTENDER BRUISING FROM INITIAL ACCESS SITE NOTED BUT UNCHANGED, NO HEMATOMA, NO BLEEDING. PATIENT DISCHARGE VIA WHEEL CHAIR RIDE WAITING, FRIEND DRIVING AND APTIENT IS TSAYING AT [facility].
== END 2023-08-20 15:43 | disposition home or self-care (01) ==
LOC: MHTC 06:38
DX: I70.223 Atherosclerosis of native arteries of extremities with rest pain, bilateral legs (principal); I10 Essential (primary) hypertension; Z87.891 Personal history of nicotine dependence; Z79.82 Long term (current) use of aspirin; Z79.899 Other long term (current) drug therapy
CPT/HCPCS: 36415; 75625; 75716; 75774; 76937; 80048; 85007; 85027; 85610; 99152; 99153; C1725; C1760; C1769; C1874; C1876; C1887; C1894; C9765; J1644; J2250; J3010; J7030; J7050; Q9967

== ENCOUNTER 2023-09-22 06:41 | Day surgery (SDC) | payer MEDICARE, OTHER ==
[~2023-09-22] VITALS: Ht 175.3 cm; Wt 78.0 kg
[2023-09-22] VITALS (7 sets, daily range): BP systolic 122–157; BP diastolic 77–90
[~2023-09-22 06:41] MED LIST changes: +CLOP75 PO; +MELATONIN5 M1 PO
[2023-09-22] MEDS ORDERED: NS 500 ML IV ONE (07:16)
[2023-09-22] MEDS ORDERED: Nitroglycerin 2 MG/20 ML BTL ONE (07:17)
[2023-09-22] MEDS ORDERED: Heparin Sodium 1000 Units/ML 10ML MDV ONE (07:17)
[2023-09-22] MEDS ORDERED: NS 1,000 ML IV ONE ×2 (07:17→08:39)
[2023-09-22] MEDS ORDERED: Midazolam HCl 1MG / ML 2ML Vial ONE ×2 (08:39→09:35)
[2023-09-22] MEDS ORDERED: FentaNYL Citrate 50 MCG/ML 2 ML Injection ONE ×2 (08:39→09:36)
[2023-09-22] MEDS ORDERED: Verapamil HCL 2.5 MG/ML 2ML Injection ONE (09:39)
--- NOTE | 2023-09-22 12:36 | NUR ---
PT VERBALIZES UNDERSTANDING WRITTEN AND VERBAL INSTRUCTIONS. DENIES QUESTIONS. VSS.NADN. PT DRESS SELF WITHOUT DIFF. PT AMBULATES TO RESTROOM AND BACK WITHOUT DIFF. PT IV DC'D. CATH INTACT. PRESSURE DSG APPLIED. NO BLEEDING NOTED. PT DC TO HOME VIA FRIEND BY W/C
== END 2023-09-22 12:45 | disposition home or self-care (01) ==
LOC: MHTC 06:41
DX: I70.222 Atherosclerosis of native arteries of extremities with rest pain, left leg (principal); I10 Essential (primary) hypertension; F17.210 Nicotine dependence, cigarettes, uncomplicated; Z79.82 Long term (current) use of aspirin; Z79.899 Other long term (current) drug therapy
CPT/HCPCS: 37224; 75710; 75716; 76937; 99152; 99153; C1725; C1760; C1769; C1887; C1894; J1644; J2250; J3010; J7030; J7050; Q9967